=== PATIENT | male | born 1950 | race Hispanic/Latino ===

== ENCOUNTER 2022-07-28 10:29 | Emergency (ER) | payer MEDICARE ==
[~2022-07-28] VITALS: Ht 165.1 cm; Wt 87.1 kg
[2022-07-28] MEDS ORDERED: LABETALOL HCL 5 MG/ML 20ML VIAL IV STA (11:27)
[2022-07-28] MEDS ORDERED: SODIUM CHLORIDE 0.9% 500ML 500 ML IV ONE (11:30)
[2022-07-28] MEDS ORDERED: METOPROLOL TARTRATE 25 MG TAB PO ONE (11:45)
[2022-07-28 12:03] LABS: BASOPHILS # (AUTO) 0.1 (0.0-0.1); BASOPHILS % 0.8 % (0.0-1.0); EOSINOPHILS % 0.2 % (0.0-6.0); HEMATOCRIT 49.8 % (38.2-49.6); HEMOGLOBIN 15.6 g/dL (14.0-18.0); LYMPHOCYTES # (AUTO) 1.6 (1.0-3.2); LYMPHOCYTES % 12.2 % (18.0-39.1); MEAN CORPUSCULAR HEMOGLOBIN 25.8 pg (28-32); MEAN CORPUSCULAR HGB CONC 31.3 g/dL (31-35); MEAN CORPUSCULAR VOLUME 82.5 fL (81-99); MONOCYTES # (AUTO) 0.7 (0.2-0.8); MONOCYTES % 5.4 % (4.4-11.3); NEUTROPHILS # (AUTO) 10.3 (2.1-6.9); NEUTROPHILS % 81.1 % (38.7-80.0); PLATELET COUNT 264 x10e3/uL (140-360); RED BLOOD COUNT 6.04 x10e6/uL (4.3-5.7); RED CELL DISTRIBUTION WIDTH 19.7 % (11.7-14.4)
[2022-07-28 13:10] LABS: ALBUMIN 4.1 g/dL (3.5-5.0); ANION GAP 17.5 mmol/L (8-16); CREATININE, SERUM 0.82 mg/dL (0.72-1.25); MAGNESIUM 1.8 MG/DL (1.3-2.1); POTASSIUM 3.5 mmol/L (3.5-5.1)
[2022-07-28 13:11] LABS: CREATINE KINASE MB 1.6 ng/mL (0-5.0)
== END 2022-07-28 13:45 | disposition home or self-care (01) ==
LOC: ER 10:37
DX: I10 Essential (primary) hypertension (principal); E78.5 Hyperlipidemia, unspecified; R94.31 Abnormal electrocardiogram [ECG] [EKG]
CPT/HCPCS: 36415; 71045; 80053; 82550; 82553; 83735; 84484; 85025; 93005; 99284; J7040